=== PATIENT | male | born 1985 | race Two or more races ===

== ENCOUNTER 2017-11-20 08:08 | Emergency (ER) | payer SELFPAY ==
--- NOTE | 2017-11-20 08:00 | EDPHY ---
H & P Time Seen by Provider: 11/20/17 08:09 Constitutional: Initial Vital Signs Temperature (C) 37.0 C 11/20/17 08:13 Heart Rate 76 11/20/17 08:13 Respiratory Rate 20 11/20/17 08:13 Blood Pressure 144/101 H 11/20/17 08:13 O2 Sat (%) 94 11/20/17 08:13 O2 Delivery Mode Room Air Allergies/Adverse Reactions: Penicillins Allergy (Verified 11/20/17 08:17) Home Medications: Medication Instructions Recorded Albuterol [Proventil Inhaler] 1 - 2 puffs IH Q4 #1 mdi 11/20/17 predniSONE 40 mg PO DAILY #10 tab 11/20/17 Medical Decision Making ED Course/Re-evaluation: CHIEF COMPLAINT: Asthma exacerbation HISTORY OF PRESENT ILLNESS: The patient is a 32 y/o male arriving via EMS with his girlfriend from outside a nearby gas station. He moved to the area 2 months ago and is currently living on the streets. He has a long history of asthma and has previously required steroids for exacerbations. He last required medical treatment for his asthma 3 months ago while in [place]. He has not been on any medications for 2 months since moving here. Around 01:00 this morning, 7 hours ago, he developed worsening shortness of breath. He used a friend's inhaler with temporary improvement, but when symptoms worsened again this morning he called EMS for assistance. EMS found him with wheezing, increased work of breathing, and a normal SpO2. They administered a duo neb with some improvement in subjective symptoms. He thinks this episode was triggered by walking several hours in the cold last night. He denies fever, chills, chest congestion, myalgias, sore throat, vomiting, diarrhea, or any other symptoms. REVIEW OF SYSTEMS: A comprehensive 10 system review of systems is otherwise negative aside from elements mentioned in the history of present illness and medical decision making. PHYSICAL EXAM: HR, BP, O2 Sat, RR. Temp noted General Appearance: Alert, well hydrated, appropriate, and non-toxic appearing. Head: Atraumatic without scalp tenderness or obvious injury Eyes: Pupils equal, round, reactive to light and accommodation, EOMI, no trauma , no injection. Nose: Atraumatic, no rhinorrhea, clear. Throat: There is no erythema or exudates, no lesions, normal tonsils, mucus membranes moist. Neck: Supple, nontender, no lymphadenopathy. Respiratory: No retractions, no distress, no wheezes, and no accessory muscle use. Lungs have end expiratory wheezes throughout with no focal decrease. Cardiovascular: Regular rate and rhythm, no murmurs, rubs, or gallops. Good capillary refill all extremities. Gastrointestinal: Abdomen is soft, nontender, non-distended, no masses, no rebound, no guarding, no peritoneal signs. Musculoskeletal: Normal active ROM of all extremities, atraumatic. Neurological: Alert, appropriate, and interactive. The patient has non-focal cranial nerves, motor, sensory, and cerebellar exam. Skin: No rashes, good turgor, no nodules on palpation. Past medical history: Asthma - previously on asthma, albuterol Past surgical history: Noncontributory Family history: Noncontributory Social history: Currently homeless. Friend at bedside. Moved here 2 months ago. DIFFERENTIAL DIAGNOSIS: The differential diagnosis for the patient's shortness of breath and hypoxemia included but was not limited to pneumonia, myocardial infarction, acute mountain sickness, high altitude pulmonary edema, congestive heart failure, and pulmonary embolus. MEDICAL DECISION MAKING: This is a transient 32 y/o male with a long history of asthma who presents with a 7-hour history of dyspnea consistent with past asthma exacerbations. He currently does not have access to any of his medications. On exam, he has end expiratory wheezes throughout with no focal decrease. He is not hypoxemic. No evidence of infection, doubt pneumonia. Plan for IV and symptomatic treatment. Duo neb and 10mg IV Decadron ordered. 0845: Reassessed patient. He continues to have some wheezing bilaterally, worse on the right side. Additional duo neb ordered. Plan for discharged with albuterol puffer, steroids, and referral to local provider for follow up. Standard care and follow up instructions discussed. He is comfortable with this plan. - Data Points Medications Given: Discontinued Medications Albuterol/Ipratropium (Duoneb) 3 ml IH EDNOW ONE Stop: 11/20/17 08:17 Last Admin: 11/20/17 08:21 Dose: 3 ml Albuterol/Ipratropium (Duoneb) 3 ml IH EDNOW ONE Stop: 11/20/17 08:53 Last Admin: 10/15/18 08:57 Dose: 3 ml Dexamethasone (Decadron Injection) 10 mg IVP EDNOW ONE Stop: 11/20/17 08:18 Last Admin: 11/20/17 08:44 Dose: 10 mg Departure - Departure Disposition: Home, Routine, Self-Care Clinical Impression: Exacerbation of asthma Qualifiers: Asthma severity: mild Asthma persistence: unspecified Qualified Code(s): J45.901 - Unspecified asthma with (acute) exacerbation Condition: Good Instructions: Albuterol (By breathing), Prednisone (By mouth), Asthma (ED) Additional Instructions: 1. Use albuterol inhaler as prescribed for asthma. 2. Take prednisone as prescribed for the next 5 days. 3. Follow up with local primary care provider to establish care and for further medication refills. 4. Return to the ED for worsening of condition. Referrals: [facility],. [Clinic] - As per Instructions Prescriptions: Albuterol [Proventil Inhaler] 1 - 2 puffs IH Q4 #1 mdi predniSONE 40 mg PO DAILY #10 tab Report Scribed for: Ck Kay Report Scribed by: Rashida Ayala Date of Report: 11/20/17 Time of Report: 08:47
[~2017-11-20 08:08] MED LIST: ALBUTEROL 60 PUFFS/8 GM MDI IH SCH; predniSONE 20 MG TAB PO SCH
[2017-11-20] MEDS ORDERED: IPRATROPIUM/ALBUTEROL 3 ML DEYVIAL IH ONE ×2 (08:16→08:52)
[2017-11-20] MEDS ORDERED: DEXAMETHASONE 10 MG/ML VIAL IVP ONE (08:17)
[2017-11-20] MEDS ORDERED: ALBUTEROL INH PREPACK MDI TAKEHOME ONE (08:18)
[2017-11-20] MEDS ORDERED: DEXAMETHASONE 4 MG/ML VIAL ONE (08:42)
[2017-11-20 09:38] VITALS: BP 128/92
== END 2017-11-20 09:44 | disposition home or self-care (01) ==
DX: J45.901 Unspecified asthma with (acute) exacerbation (principal)
CPT/HCPCS: 96374; J1100; J7512

== ENCOUNTER 2018-01-23 09:11 | Emergency (ER) | payer SELFPAY ==
[~2018-01-23 09:11] MED LIST changes: -ALBUTEROL 60 PUFFS/8 GM MDI IH SCH; +predniSONE 10 MG TAB PO SCH; -predniSONE 20 MG TAB PO SCH
[2018-01-23] MEDS ORDERED: predniSONE 20 MG TAB PO ONE (09:27)
[2018-01-23] MEDS ORDERED: IPRATROPIUM/ALBUTEROL 3 ML DEYVIAL IH ONE (09:27)
--- NOTE | 2018-01-23 09:46 | EDPHY ---
H & P Smoking Status: Light smoker Time Seen by Provider: 01/23/18 09:18 HPI/ROS: CLINICAL IMPRESSION: Asthma exacerbation, viral URI with cough ASSESSMENT/PLAN: 32-year-old male with a history of asthma presents to the emergency department with complaints of an asthma exacerbation. Patient was seen at [facility] yesterday. He was prescribed albuterol inhaler and prednisone but did not fill either one due to cost. He is speaking in full sentences, no hypoxia or respiratory distress, expiratory wheezing noted in all lung matthews improved with DuoNeb. Patient received a single dose of prednisone yesterday in the ED and was given a 2nd dose today. Case management became involved, was able to help with outpatient PCP follow-up and assistance with filling his prednisone prescription today. Chest x-ray shows no underlying pneumonia or acute cardiopulmonary findings. No reported fevers and no clinical signs of bacterial URI or influenza. Patient encouraged to continue his albuterol inhaler and prednisone at home. Follow up with PCP, warning signs return to ED sooner outlined and discharge. DIFFERENTIAL DX: [ Differential diagnosis includes but not limited to acute asthma exacerbation, viral URI with cough, pneumonia, bronchitis, influenza ED PROCEDURES: See imaging results below ED COURSE: 10:30 a.m.: Patient reassessed, feeling much better, continues to have expiratory wheezing mostly in upper lobes but reports improved ease of breathing. country manager met with patient. We will help with his prednisone prescription. She also reached out to [facility] for a follow-up appointment which patient is agreement with we are waiting for call back from [facility]. Patient has a full albuterol inhaler with him. CHIEF COMPLAINT: Cough and wheezing HPI: 32-year-old male with a past medical history of asthma presents to the emergency department with complaints of persistent cough and wheezing. Patient was seen at [facility] yesterday, reportedly received an oral dose of prednisone, a nebulizer treatment and observation. An IV was attempted at that time but they were unsuccessful. He was discharged with a prescription for albuterol and prednisone but did not fill either one due to cost. He has some albuterol at home that he has been using. He is not using a spacer. He states he quit smoking 1 week ago. He is currently staying in the halfway here. He reports having to be intubated for asthma when he was 12 or 13 and has had long hospital stays for this. He reportedly has been out of his regular asthma medication for 2 months since moving here from [place]. He does not have a local primary care doctor. He reports he took Ventolin, ProAir in the past and occasionally has used oral steroids. No reported fevers, chills, sore throat. No abdominal pain, no nausea or vomiting. He did get a flu shot this year. PAST MEDICAL HISTORY: Asthma, hypertension Pertinent Past Surgical History: None reported Family History: None reported Social History: Smoker, asthma, homeless ROS: A full 10 point review of systems was negative except for those mentioned in HPI. PHYSICAL EXAM: General Appearance: Alert, oriented, appropriate, cooperative, NAD, well hydrated, non-toxic appearing, VSS, no hypoxia, speaking in full sentences, no respiratory distress or cyanosis, no diaphoresis HEENT: TMs are clear bilaterally no perforation or FB, no injection, no evidence of serous or mucopurulent otitis. Oropharynx clear is no erythema or exudates, no tonsillar hypertrophy or asymmetry. Dentition without abnormality. Eyes: PERRLA, no acute vision change, nystagmus, swelling, discharge, pain or photosensitivity. Conjunctiva pink, no pallor or injection Neck: Supple, nontender, no lymphadenopathy, no midline pain, FROM, no meningismus. Respiratory: There are no retractions, diffuse expiratory wheezing in all lung matthews Cardiac: Tachycardic, normal rhythm, no murmurs or gallops. Gastrointestinal: Abdomen is soft, nontender, bowel sounds normal, no masses/ hernia, no rigidity, guarding or focal peritoneal findings. Skin: Warm, dry, no rashes, no nodules on palpation, no diaphoresis. MEDICAL DECISION MAKING: Patient was seen independently. Secondary supervising physician at time of evaluation was Dr. Pierce. Diagnosis: Acute asthma exacerbation, viral URI with cough. New, requires workup Summary: See Assessment and Plan for summary of ED visit Independent visualization of images, tracing, or specimens: Yes. Discussed patient with another provider: Case management Patient Progress: Improved. ([place],Reagan N) Constitutional: Initial Vital Signs Temperature (C) 37 C 01/23/18 09:15 Heart Rate 105 H 01/23/18 09:15 Respiratory Rate 18 01/23/18 09:15 Blood Pressure 143/102 H 01/23/18 09:15 O2 Sat (%) 94 01/23/18 09:15 O2 Delivery Mode Room Air Allergies/Adverse Reactions: Penicillins Allergy (Verified 11/20/17 08:17) Home Medications: Medication Instructions Recorded Albuterol [Proventil Inhaler] 1 - 2 puffs IH Q4 #1 mdi 11/20/17 predniSONE 40 mg PO DAILY #10 tab 11/20/17 predniSONE [Prednisone] 40 mg PO DAILY #20 tablet 01/23/18 MDM/Departure - MDM Medications Given: Discontinued Medications Albuterol/Ipratropium (Duoneb) 3 ml IH EDNOW ONE Stop: 01/23/18 09:28 Last Admin: 01/23/18 09:35 Dose: 3 ml Prednisone (Prednisone) 60 mg PO EDNOW ONE Stop: 01/23/18 09:28 Last Admin: 01/23/18 09:35 Dose: 60 mg ED Course/Re-evaluation: The patient was evaluated and managed by the Physician Application Support Developer. My co- signature indicates that I have reviewed this chart and I agree with the findings and plan of care as documented. I am the secondary supervising physician. (Marga Pierce) - Depart Disposition: Home, Routine, Self-Care Clinical Impression: Asthma exacerbation, mild Condition: Good Instructions: Asthma (ED) Additional Instructions: DISCHARGE INSTRUCTIONS FROM YOUR DOCTOR Thank you for visiting our emergency department today. Please keep in mind that discharge from the emergency department does not mean that there is nothing wrong - it simply means that we have not identified an emergency condition that requires further evaluation or treatment in the hospital. You should always plan to follow up with primary care for re-evaluation of your condition in the next 2-3 days. If you have been referred to a specialist, please call as soon as possible (today or tomorrow) to schedule your follow up appointment at the appropriate time. We gave you a 2nd dose of prednisone in the emergency department and helped fill a prescription for you. Please continue to use your albuterol inhaler with a spacer every 4 hr for the next 3-4 days. Our senior case manager Amanda met with you and has reached out to [facility] for a follow-up appointment. We will call you with this appointment. Please stay well hydrated and monitor symptoms closely. Return to emergency department immediately for worsening cough, increased shortness of breath, development of fevers greater than 100.4, chest pain or any other symptoms. Chest x-ray today shows no sign of pneumonia. People present with illnesses and injuries in different ways, and it is always possible that we have missed something. You may always return for re-evaluation if symptoms worsen or if they are not improving or if you develop new/different symptoms. Again, thank you for choosing our emergency department. We hope that you feel better. Prescriptions: predniSONE [Prednisone] 40 mg PO DAILY #20 tablet Referrals: Patient,NotPresent [Unknown] - As per Instructions
[2018-01-23 10:46] VITALS: BP 150/96
--- NOTE | 2018-01-23 16:39 | ASMTCMCOM ---
CM Note CM Note Notes: Pt presented to the ED for cough and asthma exacerbation. Pt recently was seen at [facility] and provided Rxns for Prednisone and an Albuterol inhaler but pt states he was unable to fill them because he couldn't afford them. Pt does not have Medicaid at this time but states he is in the process of applying. Pt states he had an appt at [facility] this past but couldn't make it because he ended up having to work. Pt works at [employer]. Pt is homeless and states he has been staying at the [facility] care home. This CM filled pt's Rxn for Prednisone through [facility] due to pt not having Medicaid or sufficient funds at this time. Pt states he has an Albuterol inhaler with him and does not need a refill at this time. Pt provided a spacer for his inhaler. Pt also provided infomration on [facility]'s Homeless Drop-In hours. Pt also provided information on [facility]. This CM called [facility] and left a voicemail requesting them to reach out to the patient. Pt's cell # ([phone]). CM available for further assistance if needed. Date Signed: 01/23/2018 04:38 PM Electronically Signed By:Amanda Duran RN
== END 2018-01-23 11:05 | disposition home or self-care (01) ==
LOC: EDUNIT#
DX: J45.901 Unspecified asthma with (acute) exacerbation (principal); Z79.899 Other long term (current) drug therapy; Z59.0 Homelessness
CPT/HCPCS: J7512

== ENCOUNTER 2018-03-17 02:58 | Emergency (ER) | payer MEDICAID ==
[2018-03-17] MEDS ORDERED: LORazepam 2 MG/ML INJ ONE (03:29)
[2018-03-17] MEDS ORDERED: NS 1,000 ML IV ONE ×2 (03:31→04:25)
[2018-03-17] MEDS ORDERED: LORazepam 2 MG/ML INJ IVP ONE (03:31)
--- NOTE | 2018-03-17 04:31 | EDPHY ---
H & P Stated Complaint: difficulty breathing after meth use Time Seen by Provider: 03/17/18 03:18 HPI/ROS: HPI The patient presents with shortness of breath which has been present for the last several hours after taking several hits of methamphetamine which he smoked. He is brought in by ambulance. He says tonight he used marijuana, had about 7 shots of hard alcohol and use methamphetamine. His shortness of breath started several minutes after using the methamphetamine though now he is feeling much better. This lasted for several hours. He did not have any wheezing or cough. He no longer has his albuterol inhaler though he does have a history of asthma.. REVIEW OF SYSTEMS 10 systems were reviewed and negative with the exception of the elements mentioned in the history of present illness. PMHx: Asthma Soc Hx: Homelessness, alcohol abuse, methamphetamine abuse, living in [place] for the last 8 months, previously lived in [place] PHYSICAL General Appearance: Alert, anxious Eyes: Pupils equal and round no pallor or injection ENT, Mouth: Mucous membranes moist Respiratory: There are no retractions, lungs are clear to auscultation Cardiovascular: Tachycardic rate and regular rhythm Gastrointestinal: Abdomen is soft and non-tender, no masses, bowel sounds normal Neurological: A&O, moves all extremities Skin: Warm and dry, no rashes Musculoskeletal: Neck is supple non tender Extremities: symmetrical, full range of motion Psychiatric: Patient is oriented X 3, there is no agitation Source: Patient Exam Limitations: No limitations - Personal History Current Tetanus/Diphtheria Vaccine: Yes Current Tetanus Diphtheria and Acellular Pertussis (TDAP): Yes Tetanus Vaccine Date: last 10 years - Medical/Surgical History Hx Asthma: Yes Hx Chronic Respiratory Disease: No Hx Diabetes: No Hx Cardiac Disease: No Hx Renal Disease: No Hx Cirrhosis: No Hx Alcoholism: No Hx HIV/AIDS: No Hx Splenectomy or Spleen Trauma: No Other PMH: Asthma, HTN, drug use - Social History Smoking Status: Former smoker Constitutional: Initial Vital Signs Temperature (C) 36.6 C 03/17/18 02:59 Heart Rate 138 H 03/17/18 02:59 Respiratory Rate 16 03/17/18 02:59 Blood Pressure 178/113 H 03/17/18 02:59 O2 Sat (%) 98 03/17/18 02:59 O2 Delivery Mode Room Air Allergies/Adverse Reactions: Penicillins Allergy (Verified 03/17/18 02:59) Home Medications: Medication Instructions Recorded Albuterol [Proventil Inhaler] 1 - 2 puffs IH Q4 #1 mdi 11/20/17 predniSONE 40 mg PO DAILY #10 tab 11/20/17 predniSONE [Prednisone] 40 mg PO DAILY #20 tablet 01/23/18 Medical Decision Making Differential Diagnosis: 33-year-old male brought in by paramedics for shortness of breath in the setting of methamphetamine smoking as well as alcohol use tonight. Here, he is tachycardic, anxious appearing however his lungs sound clear. Oxygen saturations are 100%. I suspect anxiety attack though also would consider asthma exacerbation or pneumonia. Patient was given IV fluids and Ativan for anxiety with improvement in his symptoms. Heart rate normalized. [facility]. We will send him there from the emergency department. - Data Points Medications Given: Discontinued Medications Sodium Chloride (Ns) 1,000 mls @ 0 mls/hr IV ONCE ONE PRN Reason: Wide Open Stop: 03/17/18 03:32 Last Admin: 03/17/18 03:32 Dose: 1,000 mls Sodium Chloride (Ns) 1,000 mls @ 0 mls/hr IV ONCE ONE PRN Reason: Wide Open Stop: 03/17/18 04:26 Last Admin: 03/17/18 04:25 Dose: 1,000 mls Lorazepam (Ativan Injection) 1 mg IVP EDNOW ONE Stop: 03/17/18 03:32 Last Admin: 03/17/18 03:31 Dose: 1 mg Lorazepam (Ativan) 1 mg PO EDNOW ONE Stop: 03/17/18 05:23 Last Admin: 03/17/18 05:22 Dose: 1 mg Departure - Departure Disposition: Home, Routine, Self-Care Clinical Impression: Shortness of breath, Methamphetamine abuse Alcohol intoxication Qualifiers: Complication of substance-induced condition: with delirium Qualified Code(s): F10.921 - Alcohol use, unspecified with intoxication delirium Condition: Good Instructions: Methamphetamine Abuse (ED) Additional Instructions: Please avoid using methamphetamine. Referrals: [facility],. [Clinic] - As per Instructions
[2018-03-17] MEDS ORDERED: LORazepam 1 MG TAB ONE (05:20)
[2018-03-17] MEDS ORDERED: LORazepam 1 MG TAB PO ONE (05:22)
[2018-03-17 06:08] VITALS: BP 140/96
[2018-03-17] MEDS ORDERED: CHLORDIAZEPOXIDE 25MG PREPK#6 BTL TAKEHOME ONE (06:44)
--- NOTE | 2018-03-19 03:26 | CPEKG ---
Test Reason : OPEN Blood Pressure : / mmHG Vent. Rate : 140 BPM Atrial Rate : 139 BPM P-R Int : 120 ms QRS Dur : 082 ms QT Int : 329 ms P-R-T Axes : 078 -38 -27 degrees QTc Int : 502 ms Sinus tachycardia Ventricular premature complex Aberrant conduction of SV complex(es) Left axis deviation Borderline T abnormalities, diffuse leads Prolonged QT interval Confirmed by Summer Armenta ([id number]) on 03/19/2018 3:25:08 AM Referred By: PHYSICIAN ED Confirmed By:Summer Armenta
== END 2018-03-17 07:10 | disposition home or self-care (01) ==
LOC: EDUNIT#
DX: F15.10 Other stimulant abuse, uncomplicated (principal); R06.02 Shortness of breath; F10.921 Alcohol use, unspecified with intoxication delirium; Z87.891 Personal history of nicotine dependence
CPT/HCPCS: 96374; J2060

== ENCOUNTER 2018-03-25 15:33 | Emergency (ER) | payer MEDICAID ==
--- NOTE | 2018-03-25 16:22 | EDPHY ---
HPI/HX/ROS/PE/MDM Narrative: CHIEF COMPLAINT: Anxiety, rapid heart rate HPI: This patient is a 33 year old male with history of polysubstance abuse and asthma. He presents with anxiety and sensation of rapid heart rate which began on Monday, five days ago. He complains of a sensation of bloating and states he feels he doesn't have enough oxygen. SpO2 here in the department is 100%. He complains of an increase in his heart rate associated with trying to take a deep breath. He feels anxious and endorses history of anxiety attacks. His symptoms today are similar to these. He endorses recent methamphetamine use on Monday. No nausea, vomiting, headache, urinary complaints, or other associated symptoms. REVIEW OF SYSTEMS: A comprehensive 10 system review of systems is otherwise negative aside from elements mentioned in the history of present illness and medical decision making. PMH: Anxiety. Asthma. Hypertension. SOCIAL HISTORY: Polysubstance abuse. Lives in [place]. Friend at bedside. PHYSICAL EXAM: General:Patient is alert, in no acute distress, anxious appearing. ENT:Eyes are normal to inspection. ENT inspection normal. Neck: Normal inspection. Full range of motion. Respiratory:No respiratory distress. Breath sounds normal bilaterally. Cardiovascular: Regular rate and rhythm. Strong peripheral pulses. Normal cap refill. Abdomen:The abdomen is nontender to palpation. There are no peritoneal signs. There are normal bowel sounds. Back: Normal to inspection. No tenderness to palpation. Skin: Normal color. No rash. Warm and dry. Extremities: Normal appearance. Full range of motion. Neuro: Oriented x3. Normal motor function. Normal sensory function. ED Course: 33 year old male presents with anxiety, concern for rapid heart rate. Exam unremarkable. Patient is not tachycardic here in the emergency department. Lung sounds clear to auscultation. SpO2 is 100 % throughout my interview. Plan for EKG. EKG was ordered and interpreted by myself. Please see [facility] system for official reading. 16:45 Patient written for discharge but refused to leave, demanding to speak to me again. On re-evaluation, his exam remains normal, he is in no distress and his vitals are normal. His friend at bedside continues to play with phone. I explained to him that I am not seeing any abnormalities on exam or ECG and that I do not think further workup is necessary. When asked what we can do for him, the patient tells me "just more monitoring." I explained to him that there is no indication to keep him in the ED. He then argued with nursing staff that we should not list methamphetamine abuse on his chart, despite the fact that he admits his last use was approximately one week ago. He then demanded a ' medicaid cab.' I see no signs of medical emergency at this time. The patient may be suffering from anxiety, but I think he is a poor candidate for benzodiazepine prescription as he is actively abusing drugs. I see no signs of ACS, PE, PNA, infectious process. General Time Seen by Provider: 03/25/18 15:50 Initial Vital Signs: Initial Vital Signs Temperature (C) 36.3 C 03/25/18 15:39 Heart Rate 76 03/25/18 15:39 Respiratory Rate 16 03/25/18 15:39 Blood Pressure 149/99 H 03/25/18 15:39 O2 Sat (%) 100 03/25/18 15:39 O2 Delivery Mode Room Air Allergies/Adverse Reactions: Penicillins Allergy (Verified 03/25/18 15:45) shellfish derived Allergy (Verified 03/25/18 15:45) Home Medications: Medication Instructions Recorded Albuterol [Proventil Inhaler] 1 - 2 puffs IH Q4 #1 mdi 11/20/17 predniSONE 40 mg PO DAILY #10 tab 11/20/17 predniSONE [Prednisone] 40 mg PO DAILY #20 tablet 01/23/18 Departure - Departure Disposition: Home, Routine, Self-Care Clinical Impression: Anxiety, Methamphetamine abuse Condition: Good Instructions: Methamphetamine Abuse (ED), Anxiety (ED) Additional Instructions: Please avoid using methamphetamines or other illicit substances. These can also contribute to your symptoms and feeling of anxiety. Referrals: [facility] [Outside] - As per Instructions Report Scribed for: Nathaniel Taveras Report Scribed by: Lucila Angulo Date of Report: 03/25/18 Time of Report: 16:52 Physician Review and Approval Statement: Portions of this note were transcribed by an ED scribe. I personally performed the history, physical exam, and medical decision making; and confirm the accuracy of the information in the transcribed note.
[2018-03-25 17:07] VITALS: BP 163/104
--- NOTE | 2018-03-25 22:34 | CPEKG ---
Test Reason : OPEN Blood Pressure : / mmHG Vent. Rate : 069 BPM Atrial Rate : 065 BPM P-R Int : 129 ms QRS Dur : 089 ms QT Int : 370 ms P-R-T Axes : 044 -24 -20 degrees QTc Int : 397 ms Sinus arrhythmia LVH by voltage Nonspecific T abnormalities, inferior leads Confirmed by Nathaniel Taveras ([id number]) on 03/25/2018 10:33:46 PM Referred By: Nathaniel Taveras Confirmed By:Nathaniel Taveras
== END 2018-03-25 17:05 | disposition home or self-care (01) ==
LOC: EDUNIT#
DX: F41.9 Anxiety disorder, unspecified (principal); F15.10 Other stimulant abuse, uncomplicated; I10 Essential (primary) hypertension; Z88.0 Allergy status to penicillin

== ENCOUNTER 2018-03-30 19:47 | Emergency (ER) | payer MEDICAID ==
[~2018-03-30 19:47] MED LIST changes: +ARIPiprazole 5 MG TAB PO SCH; -predniSONE 10 MG TAB PO SCH
--- NOTE | 2018-03-30 20:25 | EDPHY ---
General Time Seen by Provider: 03/30/18 20:25 Narrative: CLINICAL IMPRESSION: Anxiety, palpitations ASSESSMENT/PLAN: Patient is a 33 year old male with a significant medical history of asthma and anxiety who presents to the emergency department with complaints of palpitations , feeling very anxious with associated shortness of breath. Patient is afebrile , not toxic appearing and in no acute distress. ECG revealed nonspecific ST changes with no evidence of dysrhythmia, tachycardia or acute ischemia; reviewed by myself and Dr. Loco. ECG unchanged when compared to his ECG several days prior. His lungs were clear to auscultation bilaterally, his oxygen saturation was 96% on room air without evidence of hypoxia or respiratory distress. He had no wheezing or hypoxia to suggest acute asthma exacerbation. Patient with recent anxiety attacks very similar to today's episode. [facility] consulted, verified with the psychiatrist that patient should be on 5 mg of Abilify daily. This was initiated in the emergency department and he was provided several days until he is able to fill his prescription. There were no findings to suggest acute arrhythmia, asthma exacerbation, pneumonia, PE, ACS or medication side effect. Patient has been without methamphetamines for greater than 12 days, do not suspect acute intoxication or drug side effect. Patient was observed for a period of time and a repeat examination reports feeling much better. He was very reassured and comforted by being able to start his anti anxiety medication. P will have their case management reach out to the patient to ensure he is able to fill his prescription next week. Conservative return precautions discussed- patient will return for recurrent shortness of breath, fever, chest pain, increased anxiety or for any other concerning symptom. Patient verbalized understanding and he is in agreement with this plan. DIFFERENTIAL DX: Differential diagnosis includes but not limited to and in no particular order ED COURSE: 2106: Case discussed with VaughnDany, was given prescription and was supposed to orange picker meds on the . He is supposed to be on Abilify 5mg daily, confirmed with Psychiatrist. They will contact his returned case inspector to make sure he is able to get his prescriptions filled next week. We will provide him with 5 days. 2120: Case discussed with Dr. Loco, reviewed ECG with him. ECG unchanged from previous 5 days prior. No evidence of ACS or ischemia. 2135: On repeat examination the patient states he is feeling better. He is well-appearing and in no acute distress. He is very reassured that we are able to initiate his antianxiety medications and is comfortable with close follow-up with [facility]. CHIEF COMPLAINT: Palpitations, anxiety HPI: Patient is a 33-year-old male with a significant history of asthma and anxiety who presents to the emergency department with reports of anxiety attack, difficulty breathing and palpitations. Patient is currently living at the [facility], followed closely by [facility]. Endorses earlier today he smoked some marijuana, several hours later he was out in the cold when he started to feel mildly anxious. He was on the bus and this anxiety started to increase where he started to feel palpitations and feeling like he could not catch his breath. He states that this does not feel like an asthma attack, it feels very similar to the anxiety that he has been experiencing. He made it back to the [facility] when his symptoms continued to worsen. Patient subsequently called 911 and was brought to the emergency department for further evaluation. On my examination he reports that he is feeling better, still feeling mildly anxious however denies any shortness of breath or feelings of palpitations. Patient with history of methamphetamine use and marijuana use, states he has been clean for the last 12 days from methamphetamines and denies any alcohol use. Patient denies any recent illness, fevers, chills or cough. PMH: Anxiety, asthma Family History: Noncontributory Social History: Polysubstance abuse, occasional alcohol REVIEW OF SYSTEMS: All other systems negative Constitutional: No fever, no chills, appetite change. Eyes: No discharge, vision change ENT: No sore throat, congestion, ear pain. Cardiovascular: Palpitations No chest pain. Respiratory: Shortness of breath No cough. Gastrointestinal: No abdominal pain, no vomiting, diarrhea. Genitourinary: No hematuria, dysuria, flank pain, pelvic pain Musculoskeletal: No back pain, joint swelling, joint pain, myalgias. Skin: No rashes, color change. Neurological: No headache, dizziness, weakness. PHYSICAL EXAM: General Appearance: Well-appearing, no acute distress. HENT: Normocephalic, atraumatic. Bilateral external ears are normal. Bilateral tympanic membranes are normal with pearly osuna reflex. Nares are clear, mucosa is pink. Oropharynx is clear, uvula is midline. There is no tonsillar enlargement or exudate. The dentition is normal. Eyes: PERRLA, EOMI intact. Conjunctiva pink, no pallor or injection Neck: Supple, nontender, no lymphadenopathy, no midline pain, FROM, no meningismus. Respiratory: There are no retractions, lungs are clear to auscultation. There is no wheeze, rhonchi or rales. Cardiac: Regular rate and rhythm, no murmurs or gallops. Gastrointestinal: Abdomen is soft, nontender, bowel sounds normal, no masses/ hernia, no rigidity, guarding or focal peritoneal findings. Neurological: Alert and oriented x 3, CN 2-12 grossly intact, normal gait no ataxia, DTR's intact, normal sensation and strength Skin: Warm, dry, no rashes, no nodules on palpation. Musculoskeletal: Extremities are symmetrical, full range of motion, no tenderness, deformity, swelling, or erythema. Psychiatric: Patient is oriented X 3, there is no agitation. MEDICAL DECISION MAKING: Patient was seen independently. Secondary supervising physician at time of evaluation was Dr. Loco. Diagnosis: Anxiety. New, requires workup Summary: See Assessment and Plan for summary of ED visit Clinical lab tests: Not applicable. Independent visualization of images, tracing, or specimens: Yes. Decision to obtain medical records or history from someone other than the patient: No Review / Summarize previous medical records: Yes Discussed patient with another provider: Yes, Dr. Loco Patient Progress: Stable, discharged. - History Smoking Status: Current every day smoker - Objective Vital Signs: Initial Vital Signs Temperature (C) 37 C 03/30/18 19:51 Heart Rate 72 03/30/18 19:51 Respiratory Rate 19 03/30/18 19:51 Blood Pressure 144/107 H 03/30/18 19:51 O2 Sat (%) 98 03/30/18 19:51 O2 Delivery Mode Room Air Allergies/Adverse Reactions: Penicillins Allergy (Verified 03/25/18 15:45) shellfish derived Allergy (Verified 03/25/18 15:45) Home Medications: Medication Instructions Recorded Albuterol [Proventil Inhaler] 1 - 2 puffs IH Q4 #1 mdi 11/20/17 predniSONE 40 mg PO DAILY #10 tab 11/20/17 predniSONE [Prednisone] 40 mg PO DAILY #20 tablet 01/23/18 ARIPiprazole [Abilify 5 mg (*)] 5 mg PO DAILY #3 tab 03/30/18 ARIPiprazole [Abilify 5 mg (*)] 5 mg PO DAILY #5 tab 03/30/18 Medications Given: Discontinued Medications Aripiprazole (Abilify) 5 mg PO ONCE ONE Stop: 03/31/18 21:13 Last Admin: 03/30/18 21:34 Dose: 5 mg Departure - Departure Disposition: Home, Routine, Self-Care Clinical Impression: Anxiety Condition: Good Instructions: Anxiety (ED) Additional Instructions: DISCHARGE INSTRUCTIONS FROM YOUR DOCTOR Thank you for visiting our emergency department today. Please keep in mind that discharge from the emergency department does not mean that there is nothing wrong - it simply means that we have not identified an emergency condition that requires further evaluation or treatment in the hospital. You should always plan to follow up with primary care for re-evaluation of your condition in the next 2-3 days. You have been provided 5 days of your Abilify, I have contacted [facility] and case management should be contacting you to assist you in refilling her prescription. Rest, healthy/regular sleep schedule, push fluids, healthy diet, regular exercise. Attempt to reduce stress. Pursue pleasurable, healthy activities. Surround yourself with loving, supportive, healthy friends and family. Stop smoking as soon as possible. Avoid drugs and alcohol. Please follow-up with [facility] and continue to work through issues and develop good coping and behavioral strategies for stress reduction and symptom control. Establish care with a primary care physician. See our list of resources. The [facility] has walk-in appointments for the homeless at the following days/locations. No appointment is needed. Monday 8-10 am @ [facility] 11 AM-1 PM @ [facility] Monday 8-10:30 AM @ [facility] Monday 8-10 AM @ [facility] 2-4 PM @ [facility] Monday 8-10 AM @ [facility] Return for increased or unmanageable anxiety, severe depression, thoughts or plans to hurt yourself or someone else, for chest pain, shortness of breath, dizziness, fainting, rapid or irregular heart beat, sweating, vomiting, abdominal pain, back pain, tremor, seizure, mental status changes, or for any other new, worsening or worrisome symptoms. People present with illnesses and injuries in different ways, and it is always possible that we have missed something. You may always return for re-evaluation if symptoms worsen or if they are not improving or if you develop new/different symptoms. Again, thank you for choosing our emergency department. We hope that you feel better. Referrals: NONE *PRIMARY CARE P,. [Primary Care Provider] - As per Instructions (Follow-up with [facility]) Prescriptions: ARIPiprazole [Abilify 5 mg (*)] 5 mg PO DAILY #5 tab ARIPiprazole [Abilify 5 mg (*)] 5 mg PO DAILY #3 tab
[2018-03-30 21:35] VITALS: BP 133/86
[2018-03-31] MEDS ORDERED: ARIPiprazole 5 MG TAB PO ONE (21:12)
--- NOTE | 2018-04-01 19:52 | CPEKG ---
Test Reason : OPEN Blood Pressure : / mmHG Vent. Rate : 059 BPM Atrial Rate : 061 BPM P-R Int : 140 ms QRS Dur : 090 ms QT Int : 400 ms P-R-T Axes : 052 -26 -45 degrees QTc Int : 397 ms Sinus rhythm LVH by voltage Nonspecific T abnormalities, inferior leads Confirmed by Jonathon Loco ([id number]) on 04/01/2018 7:51:32 PM Referred By: Jonathon Loco Confirmed By:Jonathon Loco
== END 2018-03-30 22:03 | disposition home or self-care (01) ==
LOC: EDUNIT#
DX: F41.9 Anxiety disorder, unspecified (principal); F12.90 Cannabis use, unspecified, uncomplicated; J45.909 Unspecified asthma, uncomplicated

== ENCOUNTER 2018-04-08 17:58 | Emergency (ER) | payer MEDICAID | END 2018-04-08 21:20 | disposition home or self-care (01) ==

== ENCOUNTER 2018-04-10 08:32 | Emergency (ER) | payer MEDICAID, OTHER ==
[2018-04-10] MEDS ORDERED: IPRATROPIUM/ALBUTEROL 3 ML DEYVIAL IH ONE (09:21)
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
[2018-04-10] MEDS ORDERED: predniSONE 20 MG TAB PO ONE (10:12)
[2018-04-10 10:30] VITALS: BP 156/107
--- NOTE | 2018-04-10 10:36 | ASMTCMCOM ---
CM Note CM Note Notes: Patient is very pleasant and reports that he is staying at [facility] and his CM is Lance. Chart reviewed and discussed with patient his frequent ED visits and history of "losing" his medications. Patient tells me that his PCP is Gillian Kurtz at [facility] in [place]. He had an appointment yesterday where Flavia started patient on a Prednisone taper. He was scheduled for a follow up visit at [facility] this morning at 0900 but missed it due to this ED visit This CM contacted Светлана at [facility] and confirmed above. Per [facility], Patient was started on a 7 day Prednisone taper yesterday and todays dose should be 20mg TID, taper down to start tomorrow. I have scheduled an appointment for patient tomorrow at [facility] (with Flavia) for 11:10 AM. I discussed with [facility] that we would provide patient's Prednisone for todays coverage only and patient will need to follow up and continue taper tomorrow at the clinic. Patient informed of above and provided written discharge instructions with reminder of appointment and follow up. I have also stressed to patient the importance that he keep his medication with him at all times (not [facility]). When asked patient tells me that he is working at [employer] in [place] and has been 'sober' for 12 days. His drug of choice is meth and we dicussed this at length, including recovery efforts-scientologist, NA meetings, family support-which patient states he is working on daily. I have encouraged patient to continue utilizing resources at [facility], especially CM services and to stay on track with recovery efforts. I have again reinforced that he needs to take responsibility for his health and follow up with his PCP in an effort to avoid ED visits and loss of his medications. Patient verbalizes understanding. Date Signed: 04/10/2018 10:35 AM Electronically Signed By:Cassi Stevenson RN
== END 2018-04-10 10:31 | disposition home or self-care (01) ==
LOC: EDUNIT#
DX: J45.21 Mild intermittent asthma with (acute) exacerbation (principal); F17.200 Nicotine dependence, unspecified, uncomplicated; Z59.0 Homelessness
CPT/HCPCS: J7512

== ENCOUNTER 2018-05-02 01:34 | Emergency (ER) | payer MEDICAID ==
--- NOTE | 2018-05-02 01:47 | EDPHY ---
H & P Stated Complaint: panic attack, tachycardia, meth use earlier, denies pain, SOB resolved Time Seen by Provider: 05/02/18 01:47 HPI/ROS: HPI CHIEF COMPLAINT: Methamphetamine abuse, anxiety, panic attack HISTORY OF PRESENT ILLNESS: This is a 33-year-old male, he presents emergency room after states he smoked methamphetamine and snorted methamphetamine around 430 in the afternoon. This precipitated him having anxiety/panic attack. He denies any chest pain however states he was hyperventilating felt very anxious after doing so and presents to the emergency room feeling very anxious. He believes he is having anxiety attack. Past Medical History: History of depression, anxiety, methamphetamine, asthma Past Surgical History: Denies recent surgery Social History: Smoked and snorted methamphetamine tonight. Family History: Noncontributory ROS REVIEW OF SYSTEMS: 10 Systems were reviewed and negative with the exception of the elements mentioned in the history of present illness. Exam Constitutional anxious triage nursing summary reviewed, vital signs reviewed, awake/alert. Tachycardia upon arrival 140s Eyes normal conjunctivae and sclera, EOMI, PERRLA. HENT normal inspection, atraumatic, moist mucus membranes, no epistaxis, neck supple/ no meningismus, no raccoon eyes. Respiratory clear to auscultation bilaterally, normal breath sounds, no respiratory distress, no wheezing. Cardiovascular tachycardia , regular rhythm, no murmur, no edema, distal pulses normal. Gastrointestinal soft, non-tender, no rebound, no guarding, normal bowel sounds, no distension, no pulsatile mass. Genitourinary no CVA tenderness. Musculoskeletal no midline vertebral tenderness, full range of motion, no calf swelling, no tenderness of extremities, no meningismus, good pulses, neurovascularly intact. Skin pink, warm, & dry, no rash, skin atraumatic. Neurologic awake, alert and oriented x 3, AAOx3, moves all 4 extremities equally, motor intact, sensory intact, CN II-XII intact, normal cerebellar, normal vision, normal speech. Psychiatric normal mood/affect. Heme/Lymph/Immune no lymphadenopathy. Differential Diagnosis: Includes but is not limited to in a particular order acute anxiety, panic attack, methamphetamine abuse Medical Decision Making: Plan for this patient he is tachycardic here, IV be established, IV fluid bolus, 1 mg IV Ativan, basic electrolytes, EKG and re- evaluate Re-evaluation: EKG interpretation by me on record in [employer] system. Impression time of EKG 1:50 a.m., sinus tach 103, without any signs of acute ischemia. Trop 0.01. 0502: Re-examination at this time current heart rate 99, blood pressure 157/105 , pulse ox 94% on room air patient resting in fact he has been sleeping for multiple hours in the emergency room. Much improved after 1 mg IV Ativan. Patient's labs are reassuring. His EKG is nonischemic. I do highly recommend he stops from using methamphetamine. Patient is comfortable this plan. Patient is comfortable discharge. Anxiety resolved. We discussed about return precautions he understands return emergency room if develops any worsening symptoms includes anxiety, panic attack, refrain from doing methamphetamine. Source: Patient, EMS - Personal History Current Tetanus/Diphtheria Vaccine: Yes Current Tetanus Diphtheria and Acellular Pertussis (TDAP): Yes Tetanus Vaccine Date: 2013 - Medical/Surgical History Hx Asthma: Yes Hx Chronic Respiratory Disease: No Hx Diabetes: No Hx Cardiac Disease: No Hx Renal Disease: No Hx Cirrhosis: No Hx Alcoholism: No Hx HIV/AIDS: No Hx Splenectomy or Spleen Trauma: No Other PMH: Asthma, HTN, drug use, dep/anxiety - Social History Smoking Status: Current every day smoker Constitutional: Initial Vital Signs Temperature (C) 36.3 C 05/02/18 01:37 Heart Rate 120 H 05/02/18 01:37 Respiratory Rate 20 05/02/18 01:37 Blood Pressure 159/112 H 05/02/18 01:37 O2 Sat (%) 100 05/02/18 01:37 O2 Delivery Mode Room Air Allergies/Adverse Reactions: Penicillins Allergy (Verified 05/02/18 01:36) shellfish derived Allergy (Verified 05/02/18 01:36) Home Medications: Medication Instructions Recorded Albuterol 04/08/18 Albuterol Hfa Anes Only [Proair 2 puffs IH QID #1 mdi 04/08/18 Hfa Icu (*)] Combivent Respimat Inhal [place](*) 04/08/18 Medical Decision Making - Data Points Laboratory Results: Laboratory Results 05/02/18 00:50 05/02/18 00:50 05/02/18 05/02/18 05/02/18 02:40 02:04 00:50 WBC RBC Hgb Hct MCV MCH MCHC RDW Plt Count MPV Neut % (Auto) Lymph % (Auto) [place] % (Auto) Eos % (Auto) Baso % (Auto) Nucleat RBC Rel Count Absolute Neuts (auto) Absolute Lymphs (auto) Absolute Monos (auto) Absolute Eos (auto) Absolute Basos (auto) Absolute Nucleated RBC Immature Gran % Immature Gran # Sodium 140 mEq/L mEq/L (135-145) Potassium 3.3 mEq/L L mEq/L (3.5-5.2) Chloride 103 mEq/L mEq/L (97-110) Carbon Dioxide 24 mEq/l mEq/l (22-31) Anion Gap 13 mEq/L mEq/L (6-14) BUN 19 mg/dL mg/dL (7-23) Creatinine 0.9 mg/dL mg/dL (0.7-1.3) Estimated GFR > 60 Glucose 101 mg/dL H mg/dL (70-100) Calcium 9.3 mg/dL mg/dL (8.5-10.4) POC Troponin I 0.01 ng/mL ng/mL (0.00-0.08) Urine Opiates Screen NEGATIVE (NEGATIVE) Urine Barbiturates NEGATIVE (NEGATIVE) Ur Phencyclidine Scrn NEGATIVE (NEGATIVE) Ur Amphetamine Screen NON-NEGATIVE H (NEGATIVE) U Benzodiazepines Scrn NEGATIVE (NEGATIVE) Urine Cocaine Screen NEGATIVE (NEGATIVE) U Marijuana (THC) Screen NON-NEGATIVE H (NEGATIVE) 05/02/18 00:50 WBC 8.50 10^3/uL 10^3/uL (3.80-9.50) RBC 5.41 10^6/uL 10^6/uL (4.40-6.38) Hgb 15.6 g/dL g/dL (13.7-17.5) Hct 45.6 % % (40.0-51.0) MCV 84.3 fL fL (81.5-99.8) MCH 28.8 pg pg (27.9-34.1) MCHC 34.2 g/dL g/dL (32.4-36.7) RDW 12.3 % % (11.5-15.2) Plt Count 250 10^3/uL 10^3/uL (150-400) MPV 9.8 fL fL (8.7-11.7) Neut % (Auto) 72.3 % % (39.3-74.2) Lymph % (Auto) 20.7 % % (15.0-45.0) [place] % (Auto) 4.8 % % (4.5-13.0) Eos % (Auto) 1.6 % % (0.6-7.6) Baso % (Auto) 0.2 % L % (0.3-1.7) Nucleat RBC Rel Count 0.0 % % (0.0-0.2) Absolute Neuts (auto) 6.14 10^3/uL 10^3/uL (1.70-6.50) Absolute Lymphs (auto) 1.76 10^3/uL 10^3/uL (1.00-3.00) Absolute Monos (auto) 0.41 10^3/uL 10^3/uL (0.30-0.80) Absolute Eos (auto) 0.14 10^3/uL 10^3/uL (0.03-0.40) Absolute Basos (auto) 0.02 10^3/uL 10^3/uL (0.02-0.10) Absolute Nucleated RBC 0.00 10^3/uL 10^3/uL (0-0.01) Immature Gran % 0.4 % % (0.0-1.1) Immature Gran # 0.03 10^3/uL 10^3/uL (0.00-0.10) Sodium Potassium Chloride Carbon Dioxide Anion Gap BUN Creatinine Estimated GFR Glucose Calcium POC Troponin I Urine Opiates Screen Urine Barbiturates Ur Phencyclidine Scrn Ur Amphetamine Screen U Benzodiazepines Scrn Urine Cocaine Screen U Marijuana (THC) Screen Medications Given: Discontinued Medications Sodium Chloride (Ns) 1,000 mls @ 0 mls/hr IV EDNOW ONE; Wide Open PRN Reason: Protocol Stop: 05/02/18 01:54 Last Admin: 05/02/18 02:03 Dose: 1,000 mls Sodium Chloride (Ns) 1,000 mls @ 0 mls/hr IV ONCE ONE PRN Reason: Wide Open Stop: 05/02/18 04:00 Last Admin: 05/02/18 04:04 Dose: 1,000 mls Lorazepam (Ativan Injection) 1 mg IVP EDNOW ONE Stop: 05/02/18 01:55 Last Admin: 05/02/18 02:03 Dose: 1 mg Point of Care Test Results: Chemistry 05/02/18 02:04 POC Troponin I 0.01 ng/mL ng/mL (0.00-0.08) Departure - Departure Disposition: Home, Routine, Self-Care Clinical Impression: Methamphetamine abuse Condition: Good Instructions: Methamphetamine Abuse (ED), Anxiety (ED) Additional Instructions: 1. Please stop doing methamphetamine it is very dangerous drug. Referrals: NONE *PRIMARY CARE P,. [Primary Care Provider] - As per Instructions [facility],. [Clinic] - As per Instructions
[2018-05-02] MEDS ORDERED: NS 1,000 ML IV ONE ×2 (01:53→03:59)
[2018-05-02] MEDS ORDERED: LORazepam 2 MG/ML INJ IVP ONE (01:54)
[2018-05-02 01:59] LABS: PLATELET COUNT 250 10^3/uL (150-400)
[2018-05-02 05:04] VITALS: BP 157/106
--- NOTE | 2018-05-10 08:05 | CPEKG ---
Test Reason : OPEN Blood Pressure : / mmHG Vent. Rate : 103 BPM Atrial Rate : 103 BPM P-R Int : 130 ms QRS Dur : 085 ms QT Int : 340 ms P-R-T Axes : 051 -15 032 degrees QTc Int : 445 ms Sinus tachycardia Borderline left axis deviation Confirmed by Jonathon Loco ([id number]) on 05/10/2018 8:03:59 AM Referred By: Jonathon Loco Confirmed By:Jonathon Loco
== END 2018-05-02 05:23 | disposition home or self-care (01) ==
LOC: EDUNIT#
DX: F15.10 Other stimulant abuse, uncomplicated (principal); F41.0 Panic disorder [episodic paroxysmal anxiety]; I10 Essential (primary) hypertension
CPT/HCPCS: 80305; 84484-ER; 96374; J2060